=== PATIENT | female | born 1990 | race Caucasian/White ===

== ENCOUNTER 2020-06-21 23:37 | Emergency (ER) | payer BC, SELFPAY ==
[2020-06-21 23:48] VITALS: BP 136/60; PULSE 83; RESP 20; TEMP 36.7; O2SAT 99; BMI 25.8
[2020-06-22 00:11] LABS: Bilirubin Urine UA NEGATIVE (NEGATIVE); Color Urine UA YELLOW; Glucose Urine UA NEGATIVE (Negative); Ketones Urine UA TRACE (NEGATIVE); Leukocyte Esterase Urine UA 1+ (NEGATIVE); Nitrite Urine UA NEGATIVE (Negative); Occult Blood Urine UA 3+ (Negative); Protein Urine UA 3+ (Negative); Specific Gravity Urine UA >=1.030 (1.000-1.035); Urobilinogen Urine UA 0.2 E.U./dL (0.2)
[2020-06-22 00:12] LABS: Appearance Urine UA Cloudy
--- NOTE | 2020-06-22 00:15 | ED_ITS ---
HPI - Female Genitourinary General Chief complaint: Urogenital-Female Stated complaint: severe uti pain, blood in urine Time Seen by Provider: 06/22/20 00:14 Source: patient Mode of arrival: Ambulatory Limitations: no limitations History of Present Illness HPI Narrative: This is a 29-year-old female comes emergency department with complaint of dysuria, frequency, urgency and hematuria. Patient states she had similar symptoms about 3 weeks ago, she was started on oral antibiotic and then had her antibiotic changed to Augmentin based on her urine culture. She states her symptoms had resolved except for maybe a very mild twinge of dysuria. Patient states she has developed recurrent symptoms particularly last 5 hours. She has not had a fever. She has felt subjectively chilled. She has had some nausea but no emesis. She has had some lower back discomfort which she describes is midline. She has had some suprapubic abdominal discomfort. Patient has not appreciated any vaginal bleeding. She states that her discharge is slightly different. She states that she does have a new sexual partner and that will often cause her to develop cystitis. Related Data Previous Rx's Medication Instructions Recorded ciprofloxacin HCl 500 mg PO BID #14 tab 06/22/20 phenazopyridine [Pyridium] 200 mg PO TID PRN #10 tab 06/22/20 Allergies Allergy/AdvReac Type Severity Reaction Status Date / Time No Allergy Information Allergy Verified 06/22/20 01:55 Available Review of Systems Review of Systems ROS Unobtainable: All systems reviewed & are unremarkable except as noted in HPI and below Patient History alcohol intake frequency: a few times a month Substance Use Type: does not use Exam Narrative Exam Narrative: GENERAL: Alert and oriented x three, well-nourished female in mild distress. Patient has been in and out of the bathroom multiple times during her stay in the emergency department. HEENT: Head normocephalic, atraumatic, EOMI, pupils reactive, face symmetric, moist mucous membranes NECK: Supple, full range of motion CARDIOVASCULAR: Regular rate and rhythm without murmurs, rubs or gallops. RESPIRATORY: Breath sounds equal bilaterally, no wheezes rales or rhonchi. ABDOMEN: Soft, nontender. Normoactive bowel sounds all 4 quadrants. No guar ding or rebound, rigidity, no mass : No CVA tenderness EXTREMITIES: Normal range of motion, no clubbing or edema. Neurovascularly intact NEUROLOGICAL: Cranial nerves II through XII grossly intact. Moving all extremities. Normal gait. SKIN: Warm, dry, no petechiae, no rashes or lesions. Initial Vital Signs Initial Vital Signs: Vital Signs Temperature 98.0 F 06/21/20 23:48 Pulse Rate 83 06/21/20 23:48 Respiratory Rate 20 06/21/20 23:48 Blood Pressure 136/60 06/21/20 23:48 Pulse Oximetry 99 06/21/20 23:48 Course Orders Ordered: ED Orders 06/21/20 23:50 UA Complete [Urinalysis and Microscopic] Stat Urine Culture Stat Discontinued Medications Ciprofloxacin (Ciprofloxacin 500 Mg Tablet) 500 mg PO NOW ONE Stop: 06/22/20 00:49 Last Admin: 06/22/20 00:56 Dose: 500 mg Documented by: DEREK Phenazopyridine HCl (Phenazopyridine 100 Mg Prepack) 1 bottle MISC SEEINSTR ONE Stop: 06/22/20 00:49 Last Admin: 06/22/20 00:57 Dose: 1 bottle Documented by: DEREK Vital Signs Vital signs: Vital Signs - 8 hr 06/21/20 23:48 Temperature 98.0 F Pulse Rate 83 Respiratory Rate 20 Blood Pressure 136/60 Pulse Oximetry 99 MDM - Female Genitourinary Lab Data Attestation: I reviewed the patient's lab results. Labs: Lab Results 06/21/20 Range/Units 23:50 Urine Color Yellow Urine Appearance Cloudy Urine pH 6.0 (4.5-8.0) Ur Specific [place] >=1.030 H (1.000-1.035) Urine Protein 3+ H (Negative) Urine Glucose (UA) Negative (Negative) g/dL Urine Ketones Trace H (NEGATIVE) Urine Occult Blood 3+ H (Negative) Urine Nitrate Negative (Negative) Urine Bilirubin Negative (NEGATIVE) Urine Urobilinogen 0.2 (0.2) E.U./dL Ur Leukocyte Esterase 1+ H (NEGATIVE) Urine RBC 30-100/hpf H (0-5/HPF) Urine WBC 30-100/hpf H (0-5/HPF) Ur Squamous Epith Cells 1-5 /hpf (0-5/HPF) Urine Bacteria Moderate (10-30) H (None) Ur Culture Indicated? Specimen cultured Point of Care Testing Test Results Negative Urine Dip Bedside Urine Glucose Negative Bedside Urine Bilirubin - Negative Bedside Urine Ketone - Negative Urine Specific [place] 1.025 Bedside Urine Occult Blood +++ Bedside Urine pH 6 Bedside Urine Protein +++ 300 Bedside Urine Urobilinogen - Negative Bedside Urine Nitrite - Negative Bedside Urine Leukocytes + 70 Esterase MDM Narrative Medical decision making narrative: This is a 29-year-old female with classic UTI symptoms. She does have a new partner. We did discuss that if she is treated for 2nd time and developed symptoms again she does need evaluation with a pelvic exam. Patient does not know the initial antibiotic she was on. She knows the 2nd 1 was Augmentin which she completed a 10 day course. She has a UA for suspicious. Was given a prescription for Pyridium as well as Cipro and given 1st dose along with prepack here. Patient and I did discuss return precautions. She expresses her understanding. Discharge Plan Departure Patient Disposition: Home Clinical Impression: Urinary tract infection Instructions: DI for Urinary Tract Infection (UTI) Activity Restrictions/Additional Instructions: Follow up for recheck in the next week if your symptoms have not resolved. Take antibiotics until completely gone. Take pyridium 1 tablet every 8 hours as needed for bladder spasm. This medication will make your urine orange. You may take Tylenol up to a 1000 mg every 8 hours and or ibuprofen up to 800 mg every 8 hours as needed for pain. Please return for fevers greater 100.4 F, new or worsening abdominal, back or flank pain, persistent vomiting, inability to urinate, black or bloody stools or other new or concerning symptoms. Prescriptions: New ciprofloxacin HCl 500 mg tablet 500 mg PO BID Qty: 14 RF: 0 phenazopyridine [Pyridium] 200 mg tablet 200 mg PO TID PRN (Reason: pain) Qty: 10 RF: 0
[2020-06-22 00:40] LABS: RBC Urine 30-100/HPF (0-5/HPF); WBC Urine 30-100/HPF (0-5/HPF)
[2020-06-22 00:41] LABS: Bacteria Urine Moderate (10-30); Culture Indicated Urine Specimen Cultured; Squamous Epithelial Cell Urine 1-5 /HPF (0-5/HPF)
[2020-06-22] MEDS: CIPROFLOXACIN 500 MG TABLET PO (00:56)
[2020-06-22] MEDS: PHENAZOPYRIDINE 100 MG PREPACK 1 BOTTLE MISC (00:57)
== END 2020-06-22 01:09 | disposition home or self-care (01) ==
PROVIDERS: Emergency Provider Emergency Medicine
DX: N39.0 Urinary tract infection, site not specified (principal); R11.0 Nausea
CPT/HCPCS: 81001; 81003; 81025; 87077; 87086; 87186; 99283